=== PATIENT | male | born 1970 | race Caucasian/White ===

== ENCOUNTER 2021-09-25 20:35 | Emergency (ER) | payer BC ==
[~2021-09-25] VITALS: Ht 182.9 cm; Wt 170.1 kg
[2021-09-25 20:37] VITALS: BP 180/120
[2021-09-25] MEDS ORDERED: ASPI1CHW3 PO (20:50)
[2021-09-25] MEDS ORDERED: ASPI-1 PO (20:50)
[2021-09-25] MEDS ORDERED: BOOSTRIX/ADACEL VACCINE (DIPHTH/PERTUSS/ACELL/TETANUS) 0.5ML SYR IM ONE (22:30)
--- NOTE | 2021-09-25 22:55 | REPVR ---
PROCEDURE INFORMATION: Exam: XR Right Elbow Exam date and time: 09/25/2021 9:52 PM Age: 51 years old Clinical indication: Other: Fell TECHNIQUE: Imaging protocol: XR Right elbow. Views: 3 or more views. COMPARISON: No relevant prior studies available. FINDINGS: Bones/joints: Normal. Enthesophyte from the ulna. Soft tissues: Normal. IMPRESSION: No acute findings. Electronically signed by: Todd Dotson On 09/25/2021 22:55:02 PM
[2021-09-25] MEDS ORDERED: CEPH500C PO (22:59)
== END 2021-09-25 23:08 | disposition home or self-care (01) ==
LOC: EDBD 20:35 → M ED 20:35
DX: S51.001A Unspecified open wound of right elbow, initial encounter (principal); W19.XXXA Unspecified fall, initial encounter; Y92.410 Unspecified street and highway as the place of occurrence of the external cause; Y93.9 Activity, unspecified; Y99.9 Unspecified external cause status; I50.9 Heart failure, unspecified; I48.91 Unspecified atrial fibrillation; J45.909 Unspecified asthma, uncomplicated